=== PATIENT | female | born 1990 | race Caucasian/White ===

== ENCOUNTER 2017-06-29 15:55 | Inpatient (IN) | payer OTHER ==
[~2017-06-29] VITALS: Ht 152.4 cm; Wt 72.6 kg
--- NOTE | ~2017-06-29 | PA ---
Unit #: [id number] #: [id number] Patient: JOSE LUIS BAUMAN [id number] [facility] [address] [place] [address] [id number] I MR#: [id number] NAME: JOSE LUIS BAUMAN ROOM: P122 Age: 27 Sex: F Admission Date: 06/29/2017 : 1990 Date of Assessment: 06/29/2014 Attending Physician: Yas Silva M.D. Admitting Physician: Yas Silva M.D. Primary Care Physician: Primary Care Physician No PSYCHIATRIC ASSESSMENT DATE OF SERVICE 06/29/2017. IDENTIFYING DATA Ms. Jennings is a 27-year-old single white female, who is a resident of [place], [place], and was self-referred to the hospital on a voluntary basis. CHIEF COMPLAINT "I tried to commit suicide 2 days ago." HISTORY OF PRESENT ILLNESS Ms. Jennings is a 27-year-old white female with history of mood disorder, who was self-referred to the hospital stating that she tried to commit suicide 2 days ago "I went to see a new therapist and she called police for me and had been brought here for an assessment. I would have done it the other night, but my kids woke up and I stopped." The patient reports that she is still having suicidal thoughts to slit her wrist and had cut on her left wrist, which was positioned right across the radial artery and reports that precipitating factor has been conflict with the boyfriend, but she has been struggling with depression for some time and she works part-time at [employer] and she has been missing more work lately due to increased anxiety and depression and reports that she maintains a stable housing and lives with her boyfriend and her their two children, ages 6 and 4 and that she has been financially stressed out and has been having conflict with the boyfriend at this time due to him not being faithful in the relationship and does endorse increasing depression, anxiety, feelings of hopelessness and helplessness, and suicidal ideation and intent and plan and as such, a recommendation for inpatient level of care for safety and stabilization was made, and the patient was transferred to us. SUBSTANCE ABUSE HISTORY The patient denies any alcohol or drug abuse. PAST PSYCHIATRIC HISTORY The patient has had a history of outpatient psychiatric treatment in the past, but currently she is not seeing a psychiatrist and is not taking any psychotropic medications. She reports that she has tried Zoloft in the past without much benefit. PAST MEDICAL HISTORY No acute or chronic medical illnesses. Unit #: [id number] #: [id number] Patient: JOSE LUIS BAUMAN ALLERGIES Latex. CURRENT MEDICATIONS None. PERSONAL AND SOCIAL HISTORY A 27-year-old white female, who reports that she is employed part-time at [employer] and lives with her boyfriend and 2 children and has poor social support system. MENTAL STATUS EXAMINATION Young white female, who was casually dressed with fair personal hygiene, appears to be in no acute distress or discomfort. She was awake and alert on interaction with impaired attention and concentration. Her mood was anxious and depressed with a congruent affect. Her speech was slow and restricted in content. Her thought processes were disorganized with some looseness of associations and suicidal ideations. Her insight and judgment remain significantly impaired. DIAGNOSTIC IMPRESSION Psychiatric: Major depressive disorder, recurrent, moderate, without psychotic features and generalized anxiety disorder. Medical: None. Stressors: Moderate psychosocial stressors. TREATMENT PLAN 1. The patient has presented with a history of mood disorder and has been decompensating and will need inpatient hospitalization for safety and stabilization. We will start her back on her home medications. We will adjust the medications and monitor response. 2. Supportive therapy was provided to the patient. 3. Safe, structured, and nourishing environment will be provided. ESTIMATED LENGTH OF STAY 4 to 5 days. ABILITY TO HELP SELF Limited. WILLINGNESS TO HELP SELF The patient appears to be willing to help self. STRENGTHS 1. Communicative. 2. Cooperative. PROBLEMS 1. Chronic dysphoric symptoms. 2. Poor social support system. DISCHARGE CRITERIA This will be contingent upon the patient's ability to show resolution of her depression and anxiety as well as ability to stay safe to herself, particularly after discharge from the hospital. Dictated by... Unit #: [id number] #: [id number] Patient: JOSE LUIS BAUMAN Yolanda Jimenez/shreel TD: 06/30/2017 13:12 JOB #: [id number] PSYCHIATRIC ASSESSMENT Page 1 of 1 X Yas Silva MD PSYCHIATRIC ASSESSMENT
--- NOTE | ~2017-06-29 | PN ---
Unit #: [id number] #: [id number] Patient: JOSE LUIS BAUMAN [id number] [facility] [address] [place] [address] [id number] I MR#: [id number] NAME: JOSE LUIS BAUMAN ROOM: [facility] Age: 27 Sex: F Admission Date: 06/29/2017 : 1990 Attending Physician: Yas Silva M.D. Admitting Physician: Yas Silva M.D. Primary Care Physician: Primary Care Physician Keisha HOGAN PROGRESS NOTES DATE July 01, 2017 DISCUSSION Ms. Jennings is a 27-year-old white female, who was seen today and chart was reviewed and the case was discussed with the staff. The patient has been anxious, withdrawn, and rather seclusive to herself. Meanwhile, she has been cooperative with the treatment recommendations and has been taking the medications and tolerating them fairly well with no reported side effects. MENTAL STATUS EXAMINATION Young white female, who was casually dressed with fair personal hygiene and appears to be in no acute distress or discomfort. She was awake and alert on interaction with intact orientation. Her mood was anxious with a congruent affect. The patient denies any suicidal or homicidal ideations. Her insight and judgment remain slightly impaired. TREATMENT PLAN 1. We will continue her on her current medications and treatment protocol, and will monitor her response to the medications, and make further adjustments as needed. 2. We will continue to followup. Dictated by... Yolanda Jimenez/scott TD: 07/02/2017 07:03 JOB #: [id number] Unit #: [id number] #: [id number] Patient: JOSE LUIS BAUMAN PROGRESS NOTES Page 1 of 1 X Yas Silva MD X PROGRESS NOTE
--- NOTE | ~2017-06-29 | PN ---
Unit #: [id number] #: [id number] Patient: JOSE LUIS BAUMAN [id number] [facility] [address] [place] [address] [id number] I MR#: [id number] NAME: JOSE LUIS BAUMAN ROOM: P258 Age: 27 Sex: F Admission Date: 06/29/2017 : 1990 Attending Physician: Yas Silva M.D. Admitting Physician: Yas Silva M.D. Primary Care Physician: Primary Care Physician Keisha HOGAN PROGRESS NOTES DATE 07/02/2017 DISCUSSION Ms. Jennings is a 27-year-old white female who was seen today and chart was reviewed and case was discussed with the staff. She has been anxious, withdrawn and rather seclusive to herself. Meanwhile, she reports doing much better on her depressive symptoms and has been taking medications and tolerating them fairly well with no reported side effects. MENTAL STATUS EXAMINATION Young white female who was casually dressed with fair personal hygiene appears to be in no acute distress or discomfort. She was awake and alert on interaction with intact orientation. Her mood was anxious with congruent affect. She denies any suicidal or homicidal ideations. Her insight and judgement remains slightly impaired. TREATMENT PLAN 1. We will continue her on her current medications and treatment protocol. We will monitor her response to the medication and make further adjustments as needed. 2. We will continue to follow up. Dictated by... Yolanda Jimenez/courtney TD: 07/02/2017 22:00 JOB #: [id number] Unit #: [id number] #: [id number] Patient: JOSE LUIS BAUMAN PROGRESS NOTES Page 1 of 1 X Yas Silva MD PROGRESS NOTE
--- NOTE | ~2017-06-29 | DS ---
Unit #: [id number] #: [id number] Patient: JOSE LUIS BAUMAN [id number] [facility] [address] [place] [address] [id number] I MR#: [id number] NAME: JOSE LUIS BAUMAN ROOM: P258 Age: 27 Sex: F Admission Date: 06/29/2017 : 1990 Discharge Date: Attending Physician: Yas Silva M.D. Primary Care Physician: Primary Care Physician No DISCHARGE SUMMARY IDENTIFYING DATA Ms. Jennings is a 27-year-old single white female, who is a resident of [place], [place], and was self-referred to the hospital. DISCHARGE DIAGNOSES Psychiatric: Major depressive disorder, recurrent, moderate, without psychotic features. Medical: None. Stressors: Moderate psychosocial stressors. HISTORY OF PRESENT ILLNESS Please copy and paste from initial psychiatric evaluation for details. PAST PSYCHIATRIC HISTORY Please copy and paste from initial psychiatric evaluation for details. PAST MEDICAL HISTORY Please copy and paste from initial psychiatric evaluation for details. HOSPITAL COURSE The patient [facility] and was oriented to the hospital environment. Routine p.r.n. medications were initiated, and she was started back on her home medications, and Effexor and BuSpar were initiated to help with depression and she was closely monitored. The patient was taken medications regularly and was tolerating them fairly well and as such, it was decided that she will be discharged home and will continue treatment on an outpatient basis. DISCHARGE MEDICATIONS 1. Effexor XR 75 mg a day for depression. 2. BuSpar 10 mg b.i.d. for anxiety. DISCHARGE CONDITION Stable. PROGNOSIS Fair. Dictated by... Yas Silva M.D. Unit #: [id number] #: [id number] Patient: JOSE LUIS BAUMAN IAA/modl TD: 07/03/2017 08:16 JOB #: [id number] DISCHARGE SUMMARY Page 1 of 1 X Yas Silva MD DISCHARGE SUMMARY
--- NOTE | ~2017-06-29 | HP ---
Unit #: [id number] #: [id number] Patient: JOSE LUIS BAUMAN [id number] [place] [address] [id number] I MR#: [id number] NAME: JOSE LUIS BAUMAN ROOM: P122 Age: 27 Sex: F Admission Date: 06/29/2017 : 1990 Attending Physician: Yas Silva M.D. Admitting Physician: Yas Silva M.D. Primary Care Physician: Primary Care Physician No HISTORY AND PHYSICAL REASON FOR ADMISSION Suicidal ideations/acute inpatient psychiatric admission. HISTORY OF PRESENT ILLNESS The patient is a 27-year-old female, prior history of Percocet/Xanax overdose in the past with prior history of suicidal ideation, was admitted secondary to the same. PAST MEDICAL HISTORY Prior history of depression, suicidal ideation. CURRENT HOME MEDICATIONS None. ALLERGIES None. SOCIAL HISTORY Positive tobacco, alcohol, benzodiazepines. FAMILY HISTORY Reviewed and noncontributory. REVIEW OF SYSTEMS Positive depression, unkept, anxious, depressed affect. Otherwise as per HPI, 12-point was negative and reviewed in detail. PHYSICAL EXAMINATION GENERAL: Awake, alert, oriented to person, place, and time. Well built, well nourished. Does not appear to be in any acute distress. VITAL SIGNS: Temperature 98.1, pulse 88, blood pressure 128/85, respiratory rate 19. HEAD: Atraumatic. Normocephalic. EYES: Bilateral extraocular muscles are normal. Pupils equal, reactive to light and accommodation. Sclerae are normal. No jaundice. NECK: Neck is supple. No neck rigidity. No thyromegaly. No carotid bruit. No JVD. Oral mucosa is moist. CHEST: Bilateral vesicular breathing. Clear to auscultation. No basilar rales. CARDIOVASCULAR: S1 and S2 normal. No murmur, no gallop, no rub. ABDOMEN: Soft, nontender. No organomegaly. Bowel sounds are normal. No hernia, no masses, no rebound, no guarding. EXTREMITIES: No pitting edema. No calf tenderness. Extremity pulses, Unit #: [id number] #: [id number] Patient: JOSE LUIS BAUMAN including dorsalis pedis, have good volume. BACK: Normal spine curvature. No spine tenderness. No costovertebral angle tenderness. VIOLIN TUTOR: Cranial nerves normal bilaterally. Motor function bilaterally symmetric and normal. Sensory system normal. SKIN: Warm and dry. INITIAL IMPRESSION 1. Acute psychiatric inpatient admission. 2. Major depressive disorder. PLAN As per psychiatrist, medical condition stable, medical prognosis fair. There are no medical contraindications to patient participating in activities while here at [facility]. Dictated by... Rohit Perdue M.D. JOVITA/bryn TD: 06/30/2017 18:18 JOB #: [id number] HISTORY AND PHYSICAL Page 1 of 1 X Rohit Perdue MD X HISTORY AND PHYSICAL
--- NOTE | ~2017-06-29 | PN ---
Unit #: [id number] #: [id number] Patient: JOSE LUIS BAUMAN [id number] [facility] [address] [place] [address] [id number] I MR#: [id number] NAME: JOSE LUIS BAUMAN ROOM: [facility] Age: 27 Sex: F Admission Date: 06/29/2017 : 1990 Attending Physician: Yas Silva M.D. Admitting Physician: Yas Silva M.D. Primary Care Physician: Primary Care Physician Keisha HOGAN PROGRESS NOTES DATE June 30, 2017 DISCUSSION Ms. Jennings is a 27-year-old white female, with mood disorder, who was seen today and chart was reviewed and the case was discussed with the staff. The patient has been anxious, withdrawn, and rather seclusive to herself. Meanwhile, she has been cooperative with the treatment recommendations, and has been taking the medications and tolerating them fairly well with no reported side effects. MENTAL STATUS EXAMINATION Young white female, who was casually dressed with fair personal hygiene and appears to be in no acute distress or discomfort. She was awake and alert on interaction with intact orientation. Her mood was anxious with a congruent affect. The patient denies any suicidal or homicidal ideations. Her insight and judgment remain slightly impaired. TREATMENT PLAN 1. We will continue her on her current medications and treatment protocol, and will monitor her response to the medications, and make further adjustments as needed. 2. We will continue to followup. Dictated by... Yolanda Jimenez/scott TD: 07/01/2017 11:48 JOB #: [id number] Unit #: [id number] #: [id number] Patient: JOSE LUIS BAUMAN PROGRESS NOTES Page 1 of 1 X Yas Silva MD PROGRESS NOTE
[~2017-06-29 15:55] MED LIST: NO MEDICATIONS; TRIAMCINOLONE AC1 GM EXT
[2017-06-29 20:49] LABS: URINE APPEARANCE TURBID; URINE BILIRUBIN NEG (NEG); URINE BLOOD NEG (NEG); URINE COLOR DK YELLOW; URINE GLUCOSE NEG (NEG); URINE KETONE 1+ (NEG); URINE LEUKOCYTE ESTERASE TRACE (NEG); URINE NITRATE NEG (NEG); URINE PH 5.5 (5-8); URINE PROTEIN TRACE (NEG); URINE SPECIFIC GRAVITY 1.027 (1.003-1.035)
[2017-06-29 20:52] LABS: URINE BACTERIA AUWI NEG (NEGATIVE); URINE SQUAMOUS EPITHELIAL CELL FEW /[HPF]
[2017-06-29 21:11] LABS: AMPHETAMINE NEG (NEG); BARBITURATES NEG (NEG); BENZODIAZEPINES POS (NEG); COCAINE NEG (NEG); MARIJUANA NEG (NEG); OPIATES NEG (NEG); TRICYCLIC ANTIDEPRESSANTS NEG (NEG); U METHADONE NEG (NEG)
[2017-06-30 10:59] LABS: BASOPHIL% 0.5 % (0-2.5); EOSINOPHIL# 0.1 X10e3 (0-0.7); EOSINOPHIL% 1.3 % (0.0-7.0); HEMATOCRIT 40.7 % (35.0-45.0); HEMOGLOBIN 13.4 gm/dL (12.0-16.0); LYMPHOCYTE# 2.5 X10e3 (1.0-3.5); LYMPHOCYTE% 35.5 % (17.0-45.0); MEAN CELL VOLUME 90.3 FL (83-96); MEAN CORPUSCULAR HEMOGLOBIN 29.7 PG (28-34); MEAN CORPUSCULAR HGB CONC 32.9 g/dL (30-36); MONOCYTE# 0.8 X10e3 (0-1.0); NEUTROPHIL# 3.7 X10e3 (1.5-7.1); NEUTROPHIL% 51.7 % (40-75); PLATELET COUNT 220 X10e3 (140-420); RED BLOOD COUNT 4.51 X10e (3.90-5.30); RED CELL DISTRIBUTION WIDTH 13.2 % (11.0-15.5); WHITE BLOOD COUNT 7.1 X10e3 (4.0-10.5)
[2017-06-30 11:07] LABS: DIFF IND NO
[2017-06-30 11:59] LABS: THYROID STIMULATING HORMONE 1.06 uIU/ml (0.34-5.60)
[2017-06-30 12:06] LABS: FREE THYROXIN (T4) 0.9 ng/dL (0.58-1.64)
[2017-06-30 12:52] LABS: ALBUMIN SERUM 3.9 g/dL (3.5-5.0); BILIRUBIN,TOTAL 0.5 mg/dL (0.2-2.0); CALCIUM SERUM 9.4 mg/dL (8.4-10.2); CREATININE SERUM 0.5 mg/dL (0.6-1.4); GLOM FILT RATE Estimated 131.7 mL/min (>60); POTASSIUM 4.1 mmol/L (3.5-5.1); PROTEIN TOTAL SERUM 6.9 g/dL (6.0-8.3)
== END 2017-07-03 11:15 | disposition home or self-care (01) | DRG 885 ==
LOC: P1S 15:55 → P2L 07-02 14:45
PROVIDERS: Psychiatry & Neurology Psychiatry
DX: F33.1 Major depressive disorder, recurrent, moderate (principal); R45.851 Suicidal ideations; F41.1 Generalized anxiety disorder
CPT/HCPCS: 80053; 80307; 81003; 84439; 84443; 84703; 85025